=== PATIENT | female | born 1995 | race Caucasian/White ===

== ENCOUNTER 2019-05-01 14:15 | Outpatient (CLI) | payer OTHER ==
[2019-05-02 22:09] LABS: TRICHOMONAS VAGINALIS DNA NEGATIVE (NEGATIVE)
== END 2019-05-01 23:59 | disposition home or self-care (01) ==
LOC: LAB.R 14:15
PROVIDERS: ATTEND Obstetrics & Gynecology
DX: Z36.85 Encounter for antenatal screening for Streptococcus B (principal)
CPT/HCPCS: 87491; 87591; 87661; 87797

== ENCOUNTER 2019-05-01 14:35 | Outpatient (CLI) | payer OTHER ==
[2019-05-01 15:40] VITALS: BP 124/69
--- NOTE | 2019-05-26 15:59 | PROCEDURE REPORT ---
- HPI Diagnosis/Indication for NST: Decreased movement (Patient is noted decreased motion today.) Current EDU 05/31/19 Gestation 35 Weeks and 5 Days 1 Para 0 Vital Signs Temperature 36.9 C 05/01/19 15:22 Heart Rate 87 05/01/19 15:22 Respiratory Rate 16 05/01/19 15:22 Blood Pressure 124/69 05/01/19 15:22 O2 Saturation 100 05/01/19 15:22 Temperature 36.9 C 05/01/19 15:22 Heart Rate 87 05/01/19 15:22 Respiratory Rate 16 05/01/19 15:22 Blood Pressure 124/69 05/01/19 15:22 O2 Saturation 100 05/01/19 15:22 - NST Procedure NST Procedure Start Date 05/01/19 Start Time 14:45 Stop Time 15:23 Vibroacoustic Stimulation Used No Patient States Movement Yes: decreased today - Results and Plan Findings/Impression: Feels to be reactive weeks accelerations. Patient is now noting motion. Plan: Reviewed activity during . The patient is to keep up her appointment visits.
== END 2019-05-01 15:35 | disposition home or self-care (01) ==
LOC: WFO 14:35 → FBP 14:37 → WFO 15:35
PROVIDERS: ATTEND Obstetrics & Gynecology
DX: O36.8130 Decreased fetal movements, third trimester, not applicable or unspecified (principal); Z3A.35 35 weeks gestation of pregnancy
CPT/HCPCS: 59025

== ENCOUNTER 2019-05-15 12:23 | Outpatient (CLI) | payer OTHER ==
[2019-05-15 12:34] LABS: MEAN CORPUSCULAR HEMOGLOBIN 27.3 pg (27.0-31.0); MEAN CORPUSCULAR HGB CONC 31.7 g/dL (32.0-36.0); MEAN CORPUSCULAR VOLUME 86.3 fL (81.0-99.0); MEAN PLATELET VOLUME 10.6 fL (7.9-10.8); RED BLOOD COUNT 4.39 10^6/uL (4.20-5.40); RED CELL DISTRIBUTION WIDTH 15.7 % (12.0-15.0); WHITE BLOOD COUNT 11.3 x10^3/uL (4.8-10.8)
[2019-05-15 12:57] LABS: % IRON SATURATION 7 % (20-50); IRON 36 ug/dL (28-170); TOTAL IRON BINDING CAPACITY 501 ug/dL (250-450); TRANSFERRIN 358 mg/dL (192-382)
== END 2019-05-15 12:24 | disposition home or self-care (01) ==
LOC: LAB 12:23
PROVIDERS: ATTEND Obstetrics & Gynecology
DX: D50.9 Iron deficiency anemia, unspecified (principal)
CPT/HCPCS: 36415; 82728; 83540; 84466; 85027

== ENCOUNTER 2019-05-20 12:42 | Outpatient (CLI) | payer OTHER ==
--- NOTE | 2019-05-22 08:51 | Ultrasound Report ---
Reason: UTERINE SIZE DATE DISCREPANCY THIRD TRIMESTER Procedure Date: 05/20/2019 Accession Number: [id number] / [id number] Procedure: US - OB F/U or Repeat CPT Code: Final Report FULL RESULT: EXAM: FOLLOW-UP OBSTETRICAL ULTRASOUND EXAM DATE: 05/20/2019 12:45 PM. CLINICAL HISTORY: UTERINE SIZE DATE DISCREPANCY THIRD TRIMESTER. COMPARISON: None. TECHNIQUE: Real-time sonographic evaluation of the fetus performed by the computer engineer. Multiple compliance representative static images were saved for review. DATING: Established EGA 38 weeks 3 days with GENNY 05/31/2019 based on physician stated. EGA 37 weeks 4 days with GENNY 06/06/2019 based on the current ultrasound. GENERAL EVALUATION Giron . Cardiac activity: 152 bpm. movement: Visualized. Presentation: Cephalic. Placenta: Posterior position. Amniotic fluid: Normal. ULDA 15.3 cm. MVP 4.5 cm. BIOMETRY Bi-Parietal Diameter (BPD): 9 cm, 36 weeks 3 days Head Circumference (HC): 33.3 cm, 38 weeks 0 days Abdominal Circumference (AC): 34.4 cm, 38 weeks 2 days Femur Length (FL): 7.3 cm, 37 weeks 2 days Estimated Weight: 3306 g, 48.4 percentile for 38 weeks 3 days. IMPRESSION: 1. Giron live intrauterine with gestational age 38 weeks 3 days based on physician stated. 2. Estimated weight is within expected limits for assigned dating. CAROLANN
== END 2019-05-20 12:43 | disposition home or self-care (01) ==
LOC: DI 12:42
PROVIDERS: ATTEND Obstetrics & Gynecology
DX: O26.843 Uterine size-date discrepancy, third trimester (principal); Z3A.38 38 weeks gestation of pregnancy
CPT/HCPCS: 76816